=== PATIENT | female | born 1955 | race Caucasian/White ===

== ENCOUNTER 2019-05-31 01:44 | Day surgery (SDC) | payer MEDICARE, BC, SELFPAY ==
[2019-05-26 14:19] VITALS: BMI 27.7
[2019-05-31 09:18] VITALS: BP 114/79; PULSE 80; RESP 18; TEMP 37.5; O2SAT 100
[2019-05-31] MEDS: LACTATED RINGERS 1,000 ML 150 ML IV CONT (09:28)
--- NOTE | 2019-05-31 09:34 | WPDANESEPPF ---
Anes - Initial Pre Proc Eval Procedure: Operation Date: 05/31/19 10:30 Proposed Procedures p Esophagogastroduodenoscopy - Jeronimo Valdovinos MD Date/Time: 05/31/19 09:34 Surgeon: Jeronimo Valdovinos MD Pre Op Diagnosis: dysphagia Patient Data Age: 64 Gender: F Height: 5 ft Weight: 66 kg Last Vital Signs Temp 99.5 F 05/31/19 09:18 Pulse 80 05/31/19 09:18 Resp 18 05/31/19 09:18 BP 114/79 05/31/19 09:18 Pulse Ox 100 05/31/19 09:18 Allergies Allergy/AdvReac Type Severity Reaction Status Date / Time No Known Allergies Allergy Unverified 05/31/19 09:15 Home Medications Medication Instructions Recorded Confirmed Type No Home Medications 05/26/19 05/26/19 History Patient hx anesthesia problems: none Family hx anesthesia problems: none PMFSH Social History Social History Smoking status: Never smoker Alcohol intake: current Anes - Eval Final PreProcedure Day of Procedure 05/31/19 09:34 Patient weight: obese Heart: regular rate and rhythm Lungs: clear to auscultation Airway: Mallampati scale class II Neurological: alert and oriented Last oral intake: >/= 8 hours ASA classification: II Emergent: no Anesthetic plan: proceed Anesthesia type and monitoring: general GIVS and standard monitoring Informed Consent: The patient's anesthetic plan and its attendant risks and benefits were discussed with the patient/family/POA. Questions were solicited and answers provided to the satisfaction of the patient/family/POA.
--- NOTE | 2019-05-31 09:36 | PM.HPGS ---
History of Present Illness History of Present Illness Consent: Risks, benefits, and alternatives have been discussed and questions answered. Patient agrees to proceed with procedure. Chief complaint: dysphagia Narrative: Cordelia Bai is a 64 year old female with dysphagia. A few months ago she began to notice food getting caught in her upper chest when eating. To relieve that she would drink some water and after while it would finally pass. She denies chronic heartburn. She does have a strong family history of esophageal cancer and Valentin's esophagus. Her sister from cancer of the esophagus. [facility] [place] Social History Social History Smoking status: Never smoker Alcohol intake: current Meds Home Medications and Allergies Home Medications Medication Instructions Recorded Confirmed Type No Home Medications 05/26/19 05/26/19 History Allergies Allergy/AdvReac Type Severity Reaction Status Date / Time No Known Allergies Allergy Unverified 05/31/19 09:15 Vital Signs Vital Signs - 24 hr 05/31/19 09:18 Temperature 37.5 C Pulse Rate 80 Respiratory Rate 18 Blood Pressure 114/79 Pulse Oximetry 100 Exam Const: General: alert Orientation/consciousness: patient oriented x3 Resp: Auscultation: clear to auscultation bilaterally Cardio: Rhythm: regular rhythm GI: GI Palp: Yes Soft to palpation and No Tenderness to palpation present (GI) Neuro: General: patient oriented x3 Assessment and Plan Assessment and plan (1) Dysphagia: Code(s): R13.10 - Dysphagia, unspecified Status: Acute Assessment and Plan: EGD with possible biopsy or dilatation or cautery.
[2019-05-31 09:46] VITALS: BP 96/49; PULSE 78; RESP 18; O2SAT 98
[2019-05-31 09:56] VITALS: BP 92/53; PULSE 73; RESP 19; O2SAT 97
[2019-05-31 10:06] VITALS: BP 111/78; PULSE 69; RESP 18; O2SAT 98
[2019-05-31 10:16] VITALS: BP 108/80; PULSE 73; RESP 19; O2SAT 97
[2019-05-31 10:26] VITALS: BP 123/72; PULSE 71; RESP 18; O2SAT 99
== END 2019-05-31 10:44 | disposition home or self-care (01) ==
PROVIDERS: PCP Physician Assistant; Visit Provider Internal Medicine Gastroenterology
PROC: 0DJ08ZZ Inspection of Upper Intestinal Tract, Via Natural or Artificial Opening Endoscopic (ICD-10-PCS; CPT 43235; principal; 2019-05-31 10:30)
DX: K21.0 Gastro-esophageal reflux disease with esophagitis (principal); K22.10 Ulcer of esophagus without bleeding; K22.4 Dyskinesia of esophagus; E66.9 Obesity, unspecified; Z68.28 Body mass index [BMI] 28.0-28.9, adult
CPT/HCPCS: 43239; 87081; 88305; 88312; J2704; J7120

== ENCOUNTER 2019-11-06 14:27 | Outpatient (CLI) | payer MEDICARE, SELFPAY ==
[2019-11-13 14:19] LABS: Reference Lab Test Result Negative
== END 2019-11-06 14:28 | disposition home or self-care (01) ==
PROVIDERS: PCP Physician Assistant; Visit Provider Physician Assistant
DX: R09.89 Other specified symptoms and signs involving the circulatory and respiratory systems (principal); Z20.828 Contact with and (suspected) exposure to other viral communicable diseases
CPT/HCPCS: 36415; 86769

== ENCOUNTER 2020-06-26 09:34 | Observation (INO) | payer MEDICARE, SELFPAY ==
[2020-06-26] VITALS (23 sets, daily range): BP systolic 113–148; BP diastolic 58–101; PULSE 48–71; RESP 13–20; TEMP 36.6–36.7; O2SAT 96–100; BMI 25.2
--- NOTE | ~2020-06-26 | XR_ITS ---
EXAMINATION: XR chest 2V DATE: 06/26/2020 10:10 INDICATION: Midsternal chest pain. TECHNIQUE: Frontal and lateral views of the chest were obtained. COMPARISON: None. FINDINGS: The chest demonstrates clear lungs without pneumonia, pleural effusion, or pneumothorax. Th e heart size is normal. IMPRESSION: 1. No acute cardiopulmonary disease. Reviewed, dictated and finalized at location A.
--- NOTE | ~2020-06-26 | NM_ITS ---
EXAMINATION: NM fred stress w perfusion DATE: 06/27/2020 12:43 INDICATION: Chest pain. TECHNIQUE: Rest images were obtained following intravenous administration of 9.5 mCi Tc99m tetrofosmi n (Myoview). The patient was infused intravenously with Lexiscan (regadenoson). Then, 29.1 mCi Tc99m tetrofosmin (Myoview) was administered intravenously, and stress images were obtained. Data was recon structed into short axis and horizontal and vertical long axis SPECT images. Gated SPECT images were also obtained. COMPARISON: None. FINDINGS: There is no definite reversible or fixed perfusion abnormality to suggest ischemia or infar ction. There is no segmental wall motion abnormality. Left ventricular ejection fraction measures > 70%. IMPRESSION: 1. No definite ischemia or infarct. 2. Normal left ventricular ejection fraction measuring >70%. Reviewed, dictated and finalized at location A.
--- NOTE | 2020-06-26 09:44 | ECG_ITS ---
Measurements Intervals [place] Rate: 59 P: 11 CA: 132 QRS: -25 QRSD: 103 T: 9 QT: 415 QTc: 413 Interpretive Statements SINUS BRADYCARDIA DELAYED PRECORDIAL R/S TRANSITION BORDERLINE T WAVE ABNORMALITY- INFERIOR LEADS BASELINE WANDER- AVR, AVL, AVF BORDERLINE ECG Electronically Signed On 06-26-2020 10:55:42 CDT by Markie Rivera D.O.
[2020-06-26 09:55] LABS: Basophils Percent Auto 0.4 % (0.2-1.2); Eosinophils Absolute Auto 0.1 K/mm3 (0-0.3); Eosinophils Percent Auto 1.3 % (0-4.4); Hematocrit 46.6 % (37.0-47.0); Hemoglobin 15.3 g/dL (12.0-15.0); Immature Granulocyte Absolute 0.01 K/mm3 (0.00-0.031); Immature Granulocyte Percent A 0.2 % (0-0.5); Lymphocytes Absolute Auto 1.96 K/mm3 (0.9-3.2); Lymphocytes Percent Auto 42.6 % (18.3-44.2); Mean Corpuscular HGB Conc 32.8 g/dl (32-36); Mean Corpuscular Hemoglobin 29.6 pg (26-34); Mean Corpuscular Volume 90.1 fl (80-100); Monocytes Absolute Auto 0.2 K/mm3 (0.1-0.6); Monocytes Percent Auto 5.2 % (2.6-8.5); Neutrophils Absolute Auto 2.3 K/mm3 (1.3-6.7); Neutrophils Percent Auto 50.3 % (45.5-73.1); Platelet Count Result 237 k/mm3 (150-375); Red Blood Count 5.17 M/mm3 (4.2-5.4); Red Cell Distribution Width 12.3 % (11.5-14.5); White Blood Count 4.6 K/mm3 (4.5-10.0)
[2020-06-26] MEDS: ASPIRIN 81 MG CHEWABLE TABLET 324 MG PO (10:01)
[2020-06-26 10:05] LABS: Anion Gap 8 mmol/L (8-16); Blood Urea Nitrogen 20 mg/dL (7-17); Calcium 9.6 mg/dL (8.4-10.2); Carbon Dioxide 30 mmol/L (22-30); Chloride 105 mmol/L (98-107); Estimated CRCL calculation 39 ml/min; Estimated Glomerular Filt Rate > 60; Glucose 108 mg/dL (65-105); Potassium 4.2 mmol/L (3.4-5.0); Sodium 143 mmol/L (137-145)
[2020-06-26 10:07] LABS: INR 0.9; Prothrombin Time 12.4 Seconds (11.1-14.7)
[2020-06-26 10:08] LABS: Partial Thromboplastin Time 29.8 SECONDS (22.3-36.8)
--- NOTE | 2020-06-26 10:08 | ED.CHESTPAIN ---
HPI - Chest Pain General Chief Complaint: Chest Pain Stated Complaint: chest pain Time Seen by Provider: 06/26/20 09:37 History of Present Illness HPI narrative: Patient is a 65-year-old female who presents ER with chest pain. Began around 6 AM. Pressure left center of the chest. No radiation. Finds that she has exertional fatigue and shortness of breath with this chest pain. No previous history of coronary disease. She has a father who had cardiac issues in his late 50s and a brother who had an MN at age 62. Denies diaphoresis/nausea/vomiting. Has found no alleviating factors. Related Data Home Medications Medication Instructions Recorded Confirmed pantoprazole 40 mg PO DAILY 06/26/20 06/26/20 Allergies Allergy/AdvReac Type Severity Reaction Status Date / Time No Known Allergies Allergy Unverified 05/31/19 09:15 Review of Systems Review of Systems: All systems reviewed & are unremarkable except as noted in HPI and below Constitutional: Constitutional: Denies chills, Denies fever(s) and Denies weakness ENT: Denies nasal congestion and Denies sore throat Cardiovascular: Cardiovascular: Reports chest pain, Denies rapid heart rate and Denies radiating jaw, neck or arm pain Comments: Exertional shortness of breath/fatigue. Respiratory: Respiratory: Denies cough, Reports dyspnea and Denies wheezing Gastrointestinal: Gastrointestinal: Denies abdominal pain, Denies diarrhea, Denies nausea and Denies vomiting Genitourinary: Genitourinary: Denies dysuria and Denies flank pain PMFSH Past Medical History Medical History Healthy female adult Surgical History Surgical History H/O knee surgery H/O left wrist surgery History of appendectomy History of section History of partial hysterectomy Family History Family History Father Acute myocardial infarction Sibling Acute myocardial infarction Social History Social History Smoking status: Never smoker Alcohol intake: current Exam Narrative: Exam Narrative: GENERAL: Well-appearing, well-nourished, and in no acute distress. HEAD: Normocephalic, atraumatic. ENT: Mucous membranes moist. CHEST: Clear to auscultation. No respiratory distress. HEART: Regular rate and rhythm. Normal peripheral pulses. ABDOMEN: Soft, nontender, nondistended. EXTREMITIES: Normal range of motion. No edema. SKIN: Warm, dry, no rash. NEURO: Alert and oriented x3. PSYCH: Normal mood and affect. Course Course Emergency Course: Chest pain returned while talking to cardiology so patient sent to IMU. No stress test today. Patient seen in the ER by Dr. Nuno Reevaluation(s) Reevaluation #1: CP alleviated s/p nitro x 2. Will contact avionics systems engineer cardiology. Date: 06/26/20 Time: 10:45 Vital Signs Vital signs: Vital Signs Temperature 98.1 F 06/26/20 09:41 Pulse Rate 62 06/26/20 09:41 Respiratory Rate 14 06/26/20 09:41 Blood Pressure 123/70 06/26/20 09:41 Pulse Oximetry 99 06/26/20 09:41 Temperature 97.8 F 06/26/20 13:45 Pulse Rate 55 L 06/26/20 16:00 Respiratory Rate 14 06/26/20 16:00 Blood Pressure 113/62 06/26/20 16:00 Pulse Oximetry 99 06/26/20 16:00 MDM - Chest Pain Lab Data Result diagrams: 06/26/20 09:46 06/26/20 09:46 Labs: Lab Results 06/26/20 06/26/20 06/26/20 Range/Units 09:46 09:46 09:46 WBC 4.6 (4.5-10.0) K/mm3 RBC 5.17 (4.2-5.4) M/mm3 Hgb 15.3 H (12.0-15.0) g/dL Hct 46.6 (37.0-47.0) % MCV 90.1 (80-100) fl MCH 29.6 (26-34) pg MCHC 32.8 (32-36) g/dl RDW 12.3 (11.5-14.5) % Plt Count 237 (150-375) k/mm3 MPV 10.0 (7.4-10.4) fl Immature Gran % (Auto) 0.2 (0-0.5) % Neut % (Auto) 50.3 (45.5-73.1) % Lym
[2020-06-26] MEDS: NITROGLYCERIN SL 0.4 MG TABLET SUBLINGUAL (10:15)
[2020-06-26 10:17] LABS: Troponin I < 0.012 ng/mL (0.000-0.034)
--- NOTE | 2020-06-26 10:30 | PC.NURSE ---
After 2 administrations of 0.4 SL nitro q5 mins, patient chest pain went from a 5 to a 4 to a 0. ERP aware
--- NOTE | 2020-06-26 11:19 | EST_ITS ---
Patient Info Name: Cordelia Bai Age: 65 years : 1955 Gender: Female Ht: 60 in Wt: 129 lbs BSA: 1.59 m2 Heart Rhythm: Sinus Rhythm Exam Date: 06/27/2020 11:37 AM Exam Location: [facility] Stress Patient Status: Inpatient Admit Date: 06/26/2020 Staff Ordering Physician: Jorge Ortiz MD Attending Provider: Regan Nuno MD Exercise Technologist: Beverly Naranjo RDCS Exercise Physician: Regan Nuno MD Exam Type: CA stress fred w NM Study Info Indications R07.9 - Chest pain, unspecified A regadenoson stress test was performed. Summary 1. Nondiagnostic ECG changes which did not meet strict criteria for reversible myocardial ischemia with Lexiscan infusion. 2. No arrhythmias were observed during the examination. 3. Please correlate with nuclear medicine images, reported separately. Protocol: Lexiscan Stress ECG Details Stage: REST Duration (min): 5 min : 26 sec HR (bpm): 62 SBP (mmHg): 120 DBP (mmHg): 84 Stage: REST Duration (min): 13 min : 30 sec HR (bpm): 65 SBP (mmHg): 120 DBP (mmHg): 84 Stage: STAGE 1 Duration (min): 1 min : 0 sec HR (bpm): 114 SBP (mmHg): 117 DBP (mmHg): 87 Stage: RECOVERY Duration (min): 1 min : 0 sec HR (bpm): 115 SBP (mmHg): 117 DBP (mmHg): 87 Stage: RECOVERY Duration (min): 2 min : 0 sec HR (bpm): 100 SBP (mmHg): 117 DBP (mmHg): 87 Stage: RECOVERY Duration (min): 3 min : 0 sec HR (bpm): 100 SBP (mmHg): 135 DBP (mmHg): 85 Stage: RECOVERY Duration (min): 4 min : 0 sec HR (bpm): 95 SBP (mmHg): 135 DBP (mmHg): 85 Stage: RECOVERY Duration (min): 5 min : 0 sec HR (bpm): 93 SBP (mmHg): 118 DBP (mmHg): 85 Stage: RECOVERY Duration (min): 5 min : 54 sec HR (bpm): 88 SBP (mmHg): 118 DBP (mmHg): 85 Rest HR: 65 bpm Peak HR: 119 bpm Rest Sys BP: 120 mmHg Peak Sys BP: 135 mmHg Max Pred HR: 154 bpm % Max Pred HR: 77 % Target HR: 131 bpm Max RPP: 16,065 bpm*mmHg Termination Reason: Completed protocol Cardiac Symptoms: Chest pain, Shortness of breath Total Time: 1 min : 0 sec Rest Rendon BP: 84 mmHg Peak Rendon BP: 85 mmHg Total Dose: 0.4 mg Resting ECG Sinus bradycardia. Poor R-wave progression. Stress ECG Nondiagnostic ECG changes which did not meet strict criteria for reversible myocardial ischemia with Lexiscan infusion. Arrhythmias No arrhythmias were observed during the examination. Report Signatures
[2020-06-26 12:05] LABS: Cholesterol 210 mg/dL (0-200); HDL Direct 45 mg/dL; Triglycerides 189 mg/dL (<150)
[2020-06-26 12:16] LABS: LDL Cholesterol Direct 123 mg/dL
--- NOTE | 2020-06-26 13:22 | PM.IMHP ---
H&P: HPI History of Present Illness Date/Time: Date of service: 06/26/20 13:22 Cardiology short-stay H and P summary: Chief Complaint: Chest pain, fatigue Narrative: Patient is a very pleasant 65-year-old female with no significant past medical history presents to the emergency department complaints of persistent chest pressure fatigue. Patient states beginning last night she is feeling quite tired and went to bed at 7:00 p.m. which is unusual for her. She had no energy but denied chest pain or shortness of breath. She states she then awoke following morning with a heaviness in her chest central left location radiating to her left neck. Symptoms wax and wane in intensity and did not seem to worsen with activity but then began to feel worse with associated shortness of breath, nausea and as such presented to the ER. She was given 2 sublingual nitroglycerin with eventual resolution of her chest pain as reported by the emergency room physician. Upon my evaluation chest pain had recurred albeit to mild degree. Patient states she can just tell something is not right. She reports history of coronary artery disease in her father and brothers but admits she has been under a great deal of stress. She has not experienced symptoms similar to this in the past. EKG revealed no acute ischemic changes and initial troponin was negative. Plan was to admit her to the [facility] for Lexiscan nuclear stress test later this afternoon, however, given recurrence of chest pain and persistence this has been canceled with rationale explained. Patient states her symptoms are quite mild at this time and otherwise feels fair. Review of Systems Review of Systems: All systems reviewed & are unremarkable except as noted in HPI and below Constitutional: Constitutional: Reports as per HPI, Reports no additional constitutional complaints, Reports fatigue and Reports weakness Eyes: Eyes: Reports as per HPI and Reports no additional eye complaints ENT: Reports system reviewed and no additional complaints, except as documented and Reports as per HPI Cardiovascular: Cardiovascular: Reports as per HPI, Reports no additional cardiovascular complaints, Reports chest pain, Reports diaphoresis, Denies pedal edema, Denies leg edema, Denies lightheadedness and Denies palpitations Respiratory: Respiratory: Reports as per HPI, Reports no additional respiratory complaints, Denies cough, Denies hemoptysis, Reports dyspnea and Denies wheezing Gastrointestinal: Gastrointestinal: Reports as per HPI, Reports no additional gastrointestinal complaints, Denies abdominal pain, Denies melena, Denies hematochezia, Reports nausea and Denies vomiting Genitourinary: Genitourinary: Reports as per HPI, Denies hematuria and Denies dysuria Musculoskeletal: Musculoskeletal: Reports no additional musculoskeletal complaints, Reports as per HPI and Reports neck pain Integumentary/Breasts: Skin/Breast: Reports system reviewed and no additional complaints, except as docu and Reports as per HPI Neurologic: Reports system reviewed and no additional complaints, except as documented and Reports as per HPI Psychiatric: Psychiatric: Reports no additional psychiatric complaints, Reports as per HPI, Reports anxiety and Denies confusion Endocrine: Endocrine: Reports no additional endocrine complaints, Reports as per HPI and Reports fatigue Hematologic/Lymphatic: Hematologic/Lymphatic: Reports no additional hematologic/lymphatic complaints and Reports as per HPI Allergic/Immunologic: Allergic/Immunologic: Reports no additional allergic/immunologic complaints, Reports as per HPI and Denies GI upset with certain foods PMFSH Past Medical History Medical History Healthy female adult Surgical History Surgical History H/O knee surgery H/O left wrist surgery History of appendectomy History of katie
--- NOTE | 2020-06-26 13:30 | ADMGEN ---
This patient, Cordelia Bai, was admitted to IMU Room 205-01. Patient/family oriented to hospital policies and general routines including ID bracelet, bed and alarms, visiting hours, pain management, procedures, bathroom and other care routines, personal items, smoking policy, room service/diet, and visiting hours. Information on how to activate the Rapid Response Team has been discussed. Patient/Family are encouraged to report perceived risks to care and to ask questions if they do not understand what they are told or what they should do.
--- NOTE | 2020-06-26 13:35 | ECHO_ITS ---
Patient Info Name: Cordelia Bai Age: 65 years : 1955 Gender: Female Ht: 66 in Wt: 129 lbs BSA: 1.65 m2 HR: 78 bpm BP: 116 / 62 mmHg Heart Rhythm: Sinus Rhythm Technical Quality: Good Exam Date: 06/26/2020 3:53 PM Exam Location: [facility] Pulmonary Exam Room: [facility] Patient Status: Inpatient Admit Date: 06/26/2020 Staff Ordering Physician: Regan Nuno MD Lathe Operator Contact Lens: Jennifer Henry RDCS Attending Provider: Regan Nuno MD Exam Type: CA echo doppler color flow Study Info Complete two-dimensional, color flow and Doppler transthoracic echocardiogram is performed. Summary 1. Complete two-dimensional, color flow and Doppler transthoracic echocardiogram is performed. 2. Left ventricular systolic function is hyperdynamic, estimated at >70%. 3. There is mildly increased left ventricular wall thickness. 4. The left ventricular diastolic function is grade I diastolic dysfunction. 5. There is mild tricuspid valve regurgitation. 6. No pulmonary hypertension, estimated pulmonary arterial systolic pressure is 23 mmHg. 7. There is no aortic valve stenosis. Left Ventricle Left ventricular chamber dimension is normal. Left ventricular systolic function is hyperdynamic, estimated at >70%. There is mildly increased left ventricular wall thickness. The left ventricular diastolic function is grade I diastolic dysfunction. Right Ventricle Right ventricular chamber dimension is normal. Right ventricular systolic function is normal. Left Atria Left atrial chamber dimension is normal. Right Atria Right atrial chamber dimension is normal. Aortic Valve The aortic valve is trileaflet. There is mild aortic valve sclerosis. There is no aortic valve stenosis. There is no aortic valve regurgitation. Pulmonic Valve The pulmonic valve is normal. There is trace pulmonic regurgitation. Mitral Valve The mitral valve has normal leaflets. There is no mitral valve regurgitation. Tricuspid Valve The tricuspid valve leaflets are normal. There is mild tricuspid valve regurgitation. No pulmonary hypertension, estimated pulmonary arterial systolic pressure is 23 mmHg. Pericardium/Pleural The pericardium appears normal. There is trivial pericardial effusion. Inferior Vena Cava Normal inferior vena cava with >50% collapse upon inspiration consistent with normal right atrial pressure, 5 mmHg. Aorta The aortic root size at the sinus of Valsalva is normal. Left Ventricular Outflow Tract Name Value Normal LVOT 2D LVOT Diameter 2.0 cm LVOT Doppler LVOT Peak Gradient 6 mmHg LVOT Mean Gradient 3 mmHg LVOT VTI 29 cm LVOT VTI/AV VTI Ratio 1.0 LVOT Stroke Volume 88 ml LVOT CO 16.5 l/min LVOT CI 10.0 l/min/m2 Pulmonic Valve Name Value Normal
[2020-06-26 14:15] LABS: Cholesterol 146 mg/dL (0-200); HDL Direct 32 mg/dL
--- NOTE | 2020-06-26 14:18 | ECG_ITS ---
SINUS BRADYCARDIA DELAYED PRECORDIAL R/S TRANSITION LOW QRS VOLTAGE IN PRECORDIAL LEADS BORDERLINE T WAVE ABNORMALITY- INFERIOR LEADS BASELINE ARTIFACT- I, II, III, AVL BORDERLINE ECG Electronically Signed On 06-26-2020 14:16:40 CDT by Markie Rivera D.O. COMPARED TO ECG 06/26/2020 09:46:01 NO SIGNIFICANT CHANGES MTDD
[2020-06-26 14:21] LABS: Triglycerides 139 mg/dL (<150)
[2020-06-26 14:22] LABS: LDL Cholesterol Direct 91 mg/dL
[2020-06-26 14:37] LABS: Troponin I < 0.012 ng/mL (0.000-0.034)
[2020-06-26 15:17] LABS: Thyroid Stimulating Hormone Reflex 0.781 uIU/mL (0.465-4.68)
[2020-06-26] MEDS: NITROGLYCERIN OINTMENT 1 INCH DOSE TRANSDERM (15:19)
[2020-06-26 16:12] LABS: Troponin I < 0.012 ng/mL (0.000-0.034)
--- NOTE | 2020-06-26 17:18 | ECG_ITS ---
Measurements Intervals [place] Rate: 58 P: 12 UT: 133 QRS: -25 QRSD: 86 T 6 QT: 356 QTc: 352 Interpretive Statements SINUS BRADYCARDIA RSR' IN V1 OR V2, CONSIDER RIGHT VENTRICULAR HYPERTROPHY OR RIGHT VCD DELAYED PRECORDIAL R/S TRANSITION NONSPECIFIC T-WAVE ABNORMALITY- INFERIOR LEADS BORDERLINE ECG Electronically Signed On 06-27-2020 9:12:23 CDT by Markie Rivera D.O. COMPARED TO ECG 06/26/2020 13:58:36 NO SIGNIFICANT CHANGES MTDD
[2020-06-26] MEDS: ACETAMINOPHEN 325 MG TABLET 650 MG PO (19:07)
[2020-06-27] VITALS (8 sets, daily range): BP systolic 106–124; BP diastolic 57–78; PULSE 54–80; RESP 14–20; TEMP 36.1–36.4; O2SAT 97–100
[2020-06-27 05:25] LABS: Anion Gap 5 mmol/L (8-16); Blood Urea Nitrogen 17 mg/dL (7-17); Carbon Dioxide 29 mmol/L (22-30); Chloride 105 mmol/L (98-107); Estimated CRCL calculation 43 ml/min; Estimated Glomerular Filt Rate > 60; Glucose 93 mg/dL (65-105); Potassium 4.5 mmol/L (3.4-5.0); Sodium 139 mmol/L (137-145)
[2020-06-27 05:29] LABS: Hematocrit 40.6 % (37.0-47.0); Hemoglobin 13.4 g/dL (12.0-15.0); Mean Corpuscular Hemoglobin 29.6 pg (26-34); Mean Corpuscular Volume 89.8 fl (80-100); Mean Platelet Volume 10.4 fl (7.4-10.4); Platelet Count Result 224 k/mm3 (150-375); Red Blood Count 4.52 M/mm3 (4.2-5.4); Red Cell Distribution Width 12.4 % (11.5-14.5); White Blood Count 4.3 K/mm3 (4.5-10.0)
--- NOTE | 2020-06-27 07:00 | ECG_ITS ---
Measurements Intervals [place] Rate: 59 P: 19 HI: 130 QRS: -24 QRSD: 94 T: 14 QT: 432 QTc: 429 Interpretive Statements SINUS BRADYCARDIA VOLTAGE CRITERIA FOR LVH BORDERLINE T WAVE ABNORMALITY- INFERIOR LEADS BASELINE ARTIFACT- V4 BORDERLINE ECG Electronically Signed On 06-27-2020 10:01:52 CDT by Markie Rivera D.O.
--- NOTE | 2020-06-27 08:35 | PC.NURSE ---
DR. AGUILA HERE TO SEE PT.
--- NOTE | 2020-06-27 09:14 | PC.NURSE ---
EKG IN PROGRESS.
--- NOTE | 2020-06-27 10:19 | PC.NURSE ---
PT. HAS REFUSED ATORVASTATIN DOSE. WOULD LIKE TO TALK TO DR. AGUILA ABOUT MED NEED BEFORE TAKING AT THIS TIME. WILL HOLD LOVENOX DOSE THIS AM; DUE FOR STRESS TEST.
[2020-06-27 10:23] LABS: Troponin I < 0.012 ng/mL (0.000-0.034)
--- NOTE | 2020-06-27 10:40 | PC.NURSE ---
DOWN VIA WC FOR STRESS TEST. LATEST TROP RESULT NEG.
--- NOTE | 2020-06-27 11:28 | PM.PNCARD ---
Progress Note: A&P Assessment and Plan (1) Unstable angina: Code(s): I20.0 - Unstable angina Status: Acute Assessment and Plan: Chest pain persistent well over 24 hours with no ischemic EKG changes, negative serial troponins and again this morning, 2D echocardiogram while having chest pain without associated wall motion abnormalities which fairly strongly argue against true unstable angina. Nonetheless, we discussed at length invasive versus noninvasive workup. Discussed with Dr. Frederick interventional cardiology who did not feel coronary angiography warranted at this time and recommended continuing with noninvasive Lexiscan nuclear stress test. Discussed with at length, risks, benefits, alternatives and limitations with noninvasive imaging. All questions answered to her satisfaction. Patient verbalized understanding and agrees to proceed with stress test. Further recommendations to follow after review noninvasive ischemic evaluation. If negative without high risk or concerning features will add PPI and consider discharge home later today to follow up with primary care physician as an outpatient. Patient is in agreement with this plan of care. Stress coping strategies advised. Further recommendations to follow. Subjective Date/time seen: Date of service: 06/27/20 11:28 Follow-up for chest pain Patient with continuous chest pain without significant relief with nitroglycerin. Nitroglycerin paste result in significant headache which was discontinued. 2D echocardiogram revealed no wall motion abnormalities while she is having chest pain, repeat troponins serially negative, no acute ischemic changes I EKG despite consistent chest pain for well over 24 hours. Patient otherwise has no other new complaints. Stable on telemetry overnight. No other new concerns. Ambulate to the bathroom without escalation in symptoms. She feels perhaps stress or anxiety is her primary problem. Patient is NPO. Review of Systems Review of Systems: All systems reviewed & are unremarkable except as noted in HPI and below Constitutional: Constitutional: Reports as per HPI, Reports no additional constitutional complaints and Reports fatigue Eyes: Eyes: Reports as per HPI and Reports no additional eye complaints ENT: Reports system reviewed and no additional complaints, except as documented, Reports as per HPI and Reports neck pain Cardiovascular: Cardiovascular: Reports as per HPI, Reports no additional cardiovascular complaints, Reports chest pain, Denies diaphoresis, Denies pedal edema, Denies leg edema, Denies lightheadedness, Denies palpitations and Reports dyspnea Respiratory: Respiratory: Reports as per HPI, Reports no additional respiratory complaints, Denies cough, Denies hemoptysis, Denies dyspnea and Denies wheezing Gastrointestinal: Gastrointestinal: Reports as per HPI, Reports no additional gastrointestinal complaints, Denies abdominal pain, Denies melena, Denies hematochezia, Denies nausea and Denies vomiting Genitourinary: Genitourinary: Reports as per HPI, Denies hematuria and Denies dysuria Musculoskeletal: Musculoskeletal: Reports no additional musculoskeletal complaints, Reports as per HPI and Denies neck pain Integumentary/Breasts: Skin/Breast: Reports system reviewed and no additional complaints, except as docu and Reports as per HPI Neurologic: Reports system reviewed and no additional complaints, except as documented, Reports as per HPI, Denies confusion and Reports weakness Psychiatric: Psychiatric: Reports no additional psychiatric complaints, Reports as per HPI, Reports anxiety, Denies confusion and Reports depression Endocrine: Endocrine: Reports no additional endocrine complaints, Reports as per HPI, Reports fatigue and Denies palpitations Hematologic/Lymphatic: Hematologic/Lymphatic: Reports no additional hematologic/lymphatic complaints and Reports as per HPI Allergic/Immunologic: Allergic/Immunologic: Reports no addit
--- NOTE | 2020-06-27 12:30 | PC.NURSE ---
RETURNS TO ROOM VIA S/P STRESS TEST.
--- NOTE | 2020-06-27 13:32 | PC.NURSE ---
RESULTS OF STRESS TEST CALLED TO DR. AGUILA.
--- NOTE | 2020-06-27 14:22 | PM.DS ---
DS: Admitting Diagnosis Admitting Diagnosis Admitting Diagnosis: Chest pain DS: Discharge Diagnosis Discharge Diagnosis (1) Unstable angina: Code(s): I20.0 - Unstable angina Status: Acute Assessment and Plan: Chest pain persistent well over 24 hours with no ischemic EKG changes, negative serial troponins and again this morning, 2D echocardiogram while having chest pain without associated wall motion abnormalities which fairly strongly argue against true unstable angina. Nonetheless, we discussed at length invasive versus noninvasive workup. Discussed with Dr. Frederick interventional cardiology who did not feel coronary angiography warranted at this time and recommended continuing with noninvasive Lexiscan nuclear stress test. Discussed with at length, risks, benefits, alternatives and limitations with noninvasive imaging. All questions answered to her satisfaction. Patient verbalized understanding and agrees to proceed with stress test. Further recommendations to follow after review noninvasive ischemic evaluation. If negative without high risk or concerning features will add PPI and consider discharge home later today to follow up with primary care physician as an outpatient. Patient is in agreement with this plan of care. Stress coping strategies advised. Lexiscan nuclear stress test negative for ischemia by EKG and perfusion imaging with no fixed or reversible defects, EF greater than 70%. Patient verbalized understanding and agrees to follow up with primary care physician as an outpatient. Continue omeprazole 40 mg daily. Stress coping mechanism discussed. DS: Summary Hospital Course Reason for hospitalization: Chest pain Hospital Course: patient was admitted to the emergency department persistent chest pain initially concern for unstable angina. Chest pain was constant, no exacerbation with activity, no EKG changes, wall motion abnormalities by echocardiogram and ruled out for fixed or reversible defects on Lexiscan nuclear stress test. As such, etiology of chest pain thought to be most likely stress induced versus GI related. Continue omeprazole, follow-up with PCP as an outpatient within 1 week for further workup and management for stress/anxiety. patient was then discharged home in stable and improved condition although with minimal residual chest pain she will was quite comfortable and strongly desired to be discharged home for outpatient follow-up. She has significant stressors caring for her elderly mother at home recently finding out that her sister who she had planned to come and help was not going to be of any assistance. This created a severe and undue hardship for her which she feels is the explanation for her chest pain. Given the lack of any demonstrable objective evidence for myocardial ischemia and/or infarction this is a more likely explanation. Status at Discharge Cognitive/behavioral status at discharge: Competent Functional status at discharge: independent ambulation Overall status at discharge: patient is progressing back to baseline Time Spent with Patient Time attestation: Total time spent providing and/or coordinating discharge services: 34 minutes Time spent: Greater than 30 minutes Exam Narrative: Exam Narrative: General: Very pleasant female appearing slightly fatigued otherwise Well developed, alert and oriented x3. No apparent distress pleasant, and cooperative. Head: atraumatic, normocephalic Eyes: EOM intact, sclerae anicteric, conjunctivae unremarkable Ears/Nose: external inspection of ears and nose were grossly normal Mouth/Throat: oral mucosa pink and moist Neck: supple, normal range of motion, no jugular venous distention or carotid bruits, thyroid nonpalpable, trachea midline. Cardiac: Bradycardic, Regular rhythm, normal S1-S2, no murmurs, clicks, gallops, or rubs. Lungs: Clear to auscultation bilaterally, no rales, wheezes, or rhonchi. Abdome
== END 2020-06-27 15:01 | disposition home or self-care (01) ==
LOC: ANHED 10:08 → ANHIMU 12:11
PROVIDERS: Admitting Provider Internal Medicine Cardiovascular Disease; Emergency Provider Emergency Medicine; PCP Physician Assistant; Visit Provider Internal Medicine Cardiovascular Disease
DX: R07.9 Chest pain, unspecified (principal); R53.83 Other fatigue
CPT/HCPCS: 36415; 71046; 78452; 80048; 80061; 84443; 84484; 85025; 85027; 85610; 85730; 93005; 93017; 93306; 99285; A9270; A9502; G0378; J2785

== ENCOUNTER → 2020-08-12 16:44 | Outpatient (REF) | payer MEDICARE, SELFPAY | LOC: ANHLAB 16:44 | PROVIDERS: PCP Physician Assistant; Visit Provider Nurse Practitioner | DX: D49.2 Neoplasm of unspecified behavior of bone, soft tissue, and skin (principal) | CPT/HCPCS: 88305 ==

== ENCOUNTER → 2020-09-02 07:17 | Outpatient (REF) | payer MEDICARE, SELFPAY | LOC: ANHLAB 07:17 | PROVIDERS: PCP Physician Assistant; Visit Provider Nurse Practitioner | DX: L57.0 Actinic keratosis (principal) | CPT/HCPCS: 88305; 88331 ==

== ENCOUNTER → 2020-09-14 01:28 | Outpatient (CLI) | payer MEDICARE, SELFPAY ==
[2020-09-14 19:37] LABS: SARS-CoV-2 RNA PCR Negative
== END ==
PROVIDERS: PCP Physician Assistant; Visit Provider Internal Medicine Gastroenterology
DX: Z01.812 Encounter for preprocedural laboratory examination (principal); Z20.822 Contact with and (suspected) exposure to COVID-19
CPT/HCPCS: C9803; U0003; U0005

== ENCOUNTER 2020-09-18 01:45 | Day surgery (SDC) | payer MEDICARE, SELFPAY ==
[2020-09-11 12:52] VITALS: BMI 28.0
[2020-09-18] MEDS: LACTATED RINGERS 1,000 ML 150 ML IV CONT (06:56)
[2020-09-18 06:58] VITALS: BP 134/76; PULSE 64; RESP 16; TEMP 36.3; O2SAT 100; BMI 29.0
--- NOTE | 2020-09-18 06:58 | PM.HPGS ---
History of Present Illness History of Present Illness Consent: Risks, benefits, and alternatives have been discussed and questions answered. Patient agrees to proceed with procedure. Chief complaint: gerd, esophagitis Narrative: Cordelia Dillard is a 65 year old female With a very strong family history of Valentin's esophagus. Her mother in fact from cancer of the esophagus at age 51. The patient had an EGD over a year ago that revealed ulcerative esophagitis. It was too severely inflamed for the pathologist to rule out Valentin's mucosa. She is taking pantoprazole daily now Review of Systems Review of Systems: All systems reviewed & are unremarkable except as noted in HPI and below PMFSH Past Medical History Medical History Healthy female adult Surgical History Surgical History H/O knee surgery H/O left wrist surgery History of appendectomy History of section History of partial hysterectomy Family History Family History Father Acute myocardial infarction Sibling Acute myocardial infarction Social History Social History Smoking status: Never smoker Alcohol intake: current Alcohol use details: socially Living arrangements: with family Spiritual care concerns: No Meds Home Medications and Allergies Home Medications Medication Instructions Recorded Confirmed Type pantoprazole 40 mg tablet,delayed 40 mg PO QAM 07/10/20 09/18/20 History release valacyclovir 1 gram tablet 1,000 mg PO DAILY 07/10/20 09/18/20 History Allergies Allergy/AdvReac Type Severity Reaction Status Date / Time No Known Allergies Allergy Verified 09/18/20 06:47 Exam Const: General: alert Orientation/consciousness: patient oriented x3 Resp: Auscultation: clear to auscultation bilaterally Cardio: Rhythm: regular rhythm GI: GI Palp: Yes Soft to palpation and No Tenderness to palpation present (GI) Neuro: General: patient oriented x3 Assessment and Plan Assessment and plan (1) GERD (gastroesophageal reflux disease): Code(s): K21.9 - Gastro-esophageal reflux disease without esophagitis Status: Acute Assessment and Plan: EGD with possible biopsy or dilatation or cautery.
--- NOTE | 2020-09-18 07:48 | WPDANESEPPF ---
Anes - Initial Pre Proc Eval Procedure: Operation Date: 09/18/20 08:00 Proposed Procedures p Esophagogastroduodenoscopy - Jeronimo Valdovinos MD Date/Time: 09/18/20 07:48 Surgeon: Jeronimo Valdovinos MD Pre Op Diagnosis: gerd, esophagitis Patient Data Age: 65 Gender: F Height: 5 ft Weight: 67.4 kg Last Vital Signs Temp 97.4 F L 09/18/20 06:58 Pulse 64 09/18/20 06:58 Resp 16 09/18/20 06:58 BP 134/76 09/18/20 06:58 Pulse Ox 100 09/18/20 06:58 Allergies Allergy/AdvReac Type Severity Reaction Status Date / Time No Known Allergies Allergy Verified 09/18/20 06:47 Home Medications Medication Instructions Recorded Confirmed Type pantoprazole 40 mg tablet,delayed 40 mg PO QAM 07/10/20 09/18/20 History release valacyclovir 1 gram tablet 1,000 mg PO DAILY 07/10/20 09/18/20 History Patient hx anesthesia problems: none Family hx anesthesia problems: none PMFSH Past Medical History Medical History Healthy female adult Surgical History Surgical History H/O knee surgery H/O left wrist surgery History of appendectomy History of section History of partial hysterectomy Family History Family History Father Acute myocardial infarction Sibling Acute myocardial infarction Social History Social History Smoking status: Never smoker Alcohol intake: current Alcohol use details: socially Living arrangements: with family Spiritual care concerns: No Anes - Eval Final PreProcedure Day of Procedure 09/18/20 07:48 Patient weight: overweight Heart: regular rate and rhythm Lungs: clear to auscultation Airway: Mallampati scale class II Neurological: alert and oriented Last oral intake: >/= 8 hours ASA classification: II Emergent: no Anesthetic plan: proceed Anesthesia type and monitoring: general GIVS and standard monitoring Informed Consent: The patient's anesthetic plan and its attendant risks and benefits were discussed with the patient/family/POA. Questions were solicited and answers provided to the satisfaction of the patient/family/POA.
[2020-09-18 08:10] VITALS: BP 123/77; PULSE 59; RESP 13; O2SAT 100
[2020-09-18 08:20] VITALS: BP 126/91; PULSE 61; RESP 16; O2SAT 100
[2020-09-18 08:30] VITALS: BP 132/85; PULSE 55; RESP 16; O2SAT 100
== END 2020-09-18 08:45 | disposition home or self-care (01) ==
PROVIDERS: PCP Physician Assistant; Visit Provider Internal Medicine Gastroenterology
PROC: 0DJ08ZZ Inspection of Upper Intestinal Tract, Via Natural or Artificial Opening Endoscopic (ICD-10-PCS; CPT 43235; principal; 2020-09-18 08:00)
DX: K21.00 Gastro-esophageal reflux disease with esophagitis, without bleeding (principal); K22.70 Barrett's esophagus without dysplasia
CPT/HCPCS: 43239; 88305; C9803; J2704; J7120; U0003; U0005

== ENCOUNTER 2020-12-05 01:07 | Day surgery (SDC) | payer MEDICARE, SELFPAY ==
[2020-11-26 12:51] VITALS: BMI 28.0
[2020-12-05 11:04] VITALS: BP 130/82; PULSE 70; TEMP 36.2; O2SAT 100
[2020-12-05] MEDS: LACTATED RINGERS 1,000 ML 150 ML IV CONT (11:11)
--- NOTE | 2020-12-05 11:45 | PM.HPGS ---
History of Present Illness History of Present Illness Consent: Risks, benefits, and alternatives have been discussed and questions answered. Patient agrees to proceed with procedure. Chief complaint: neoplasm screening Narrative: Cordelia Dillard is a 65 year old female referred for colon cancer screening. She is also troubled by severe pain on the left side of her abdomen that seems to go up and down from the lower quadrant to the subcostal area. This pain is continuous. She had a CT scan was unremarkable, and has seen a surgeon and tracer lathe set up operator and those exams were unremarkable. The pain is aggravated by getting up from a lying or sitting position and also much worse going up and downstairs. She has a history of having had 4 exploratories to remove adhesions from [id number]. Review of Systems Review of Systems: All systems reviewed & are unremarkable except as noted in HPI and below PMFSH Past Medical History Medical History Healthy female adult Surgical History Surgical History H/O knee surgery L 2013 & R 2017 H/O left wrist surgery L 2019 History of appendectomy 1963 History of section 1979, 1981, 1987 History of partial hysterectomy 2006 Hx of laparoscopy 1996, 1999, 2002, 2005 Family History Family History Father Acute myocardial infarction Sibling Acute myocardial infarction Esophageal cancer Ovarian cancer Other Diabetes mellitus Squamous cell carcinoma Social History Social History Smoking status: Never smoker Tobacco type: cigarettes Alcohol intake: current Alcohol use details: socially Living arrangements: with family Additional occupation/education comments: Self employed Spiritual care concerns: No Meds Home Medications and Allergies Home Medications Medication Instructions Recorded Confirmed Type pantoprazole 40 mg tablet,delayed 40 mg PO QAM 07/10/20 11/26/20 History release valacyclovir 1 gram tablet 1,000 mg PO DAILY PRN 07/10/20 11/26/20 History Allergies Allergy/AdvReac Type Severity Reaction Status Date / Time No Known Allergies Allergy Verified 11/26/20 12:50 Vital Signs Vital Signs - 24 hr 12/05/20 11:04 Temperature 36.2 C L Pulse Rate 70 Blood Pressure 130/82 Pulse Oximetry 100 Exam Const: General: uncomfortable Nutritional Appearance: average body habitus GI: Inspection: scar ( vertical midline scar from multiple operations) GI Palp: Yes abdominal tenderness ( Left upper quadrant), Yes Guarding due to palpation present (GI) ( slight, in left upper quadrant) and Yes No hepatosplenomegaly present Auscultation: normal bowel sounds Assessment and Plan Assessment and plan (1) Colon cancer screening: Code(s): Z12.11 - Encounter for screening for malignant neoplasm of colon Status: Acute Assessment and Plan: Colonoscopy with possible biopsy or polypectomy or cautery or injection of substances.
--- NOTE | 2020-12-05 11:47 | WPDANESEPPF ---
Anes - Initial Pre Proc Eval Procedure: Operation Date: 12/05/20 12:00 Proposed Procedures p Screening Colonoscopy - Jeronimo Valdovinos MD Date/Time: 12/05/20 11:47 Surgeon: Jeronimo Valdovinos MD Pre Op Diagnosis: neoplasm screening Patient Data Age: 65 Gender: F Height: 1.52 m Weight: 64.3 kg Last Vital Signs Temp 97.1 F L 12/05/20 11:04 Pulse 70 12/05/20 11:04 BP 130/82 12/05/20 11:04 Pulse Ox 100 12/05/20 11:04 Allergies Allergy/AdvReac Type Severity Reaction Status Date / Time No Known Allergies Allergy Verified 11/26/20 12:50 Home Medications Medication Instructions Recorded Confirmed Type pantoprazole 40 mg tablet,delayed 40 mg PO QAM 07/10/20 11/26/20 History release valacyclovir 1 gram tablet 1,000 mg PO DAILY PRN 07/10/20 11/26/20 History Patient hx anesthesia problems: none Family hx anesthesia problems: none PMFSH Past Medical History Medical History Healthy female adult Surgical History Surgical History H/O knee surgery L 2014 & R 2017 H/O left wrist surgery L 2019 History of appendectomy 1963 History of section 1979, 1981, 1987 History of partial hysterectomy 2006 Hx of laparoscopy 1996, 1999, 2002, 2006 Family History Family History Father Acute myocardial infarction Sibling Acute myocardial infarction Esophageal cancer Ovarian cancer Other Diabetes mellitus Squamous cell carcinoma Social History Social History Smoking status: Never smoker Tobacco type: cigarettes Alcohol intake: current Alcohol use details: socially Living arrangements: with family Additional occupation/education comments: Self employed Spiritual care concerns: No Anes - Eval Final PreProcedure Day of Procedure 12/05/20 11:47 Patient weight: overweight Heart: regular rate and rhythm Lungs: clear to auscultation Airway: Mallampati scale class II Neurological: alert and oriented Last oral intake: >/= 8 hours ASA classification: II Emergent: no Anesthetic plan: proceed Anesthesia type and monitoring: general GIVS and standard monitoring Informed Consent: The patient's anesthetic plan and its attendant risks and benefits were discussed with the patient/family/POA. Questions were solicited and answers provided to the satisfaction of the patient/family/POA.
[2020-12-05 12:56] VITALS: BP 111/66; PULSE 63; RESP 16; O2SAT 100
[2020-12-05 13:06] VITALS: BP 100/67; PULSE 68; RESP 18; O2SAT 100
[2020-12-05 13:16] VITALS: BP 117/79; PULSE 55; RESP 16; O2SAT 98
== END 2020-12-05 13:31 | disposition home or self-care (01) ==
PROVIDERS: PCP Physician Assistant; Visit Provider Internal Medicine Gastroenterology
PROC: 0DJD8ZZ Inspection of Lower Intestinal Tract, Via Natural or Artificial Opening Endoscopic (ICD-10-PCS; CPT 45378; principal; 2020-12-05 12:00)
DX: Z12.11 Encounter for screening for malignant neoplasm of colon (principal); D12.5 Benign neoplasm of sigmoid colon; K57.30 Diverticulosis of large intestine without perforation or abscess without bleeding; R10.32 Left lower quadrant pain
CPT/HCPCS: 45385; 88305; J2001; J2704; J7120

== ENCOUNTER 2022-02-16 20:48 | Emergency (ER) | payer MEDICARE, SELFPAY ==
--- NOTE | ~2022-02-16 | CT_ITS ---
EXAMINATION: CT brain wo con INDICATION: Headache COMPARISON: None TECHNIQUE: Standard unenhanced head CT. The dose-length product (DLP) was 605.33 mGy-cm. The mA was a djusted according to patient size. Iterative reconstruction technique was employed. FINDINGS: There is no intracranial hemorrhage, acute infarction, or abnormal mass lesion. A subtle ar ea of low-attenuation is seen in the left frontal butterfield radiata, likely related to prior infarct. Th e ventricles are normal. There is no abnormal mass effect or midline shift. The zelaya-white matter dif ferentiation is normal. The basal cisterns are patent. The orbits are normal. The paranasal sinuses, mastoids and calvarium are normal. IMPRESSION: 1. No acute intracranial abnormality. 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 Reviewed, dictated and finalized at location B. RVISOR BODY ASSEMBLY IMPRESSION: 1. No acute intracranial abnormality. 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
[2022-02-16 20:50] VITALS: BP 151/83; PULSE 61; RESP 20; TEMP 37; O2SAT 100
--- NOTE | 2022-02-16 22:58 | ED.GENADULT ---
HPI - General Adult General Chief complaint: Headache <SANDY Gonzalez Last Filed: 02/17/22 02:04> Stated complaint: headache <SANDY Gonzalez Last Filed: 02/17/22 02:04> Time Seen by Provider: 02/16/22 22:49 <SANDY Gonzalez Last Filed: 02/17/22 02:04> History of Present Illness HPI narrative: Patient is a 66-year-old female here for evaluation of a headache x 2 hours. Patient states that she was at rest when she suddenly developed a severe headache on the right side of her head that is throbbing and pulsatile in nature. Radiates into her ear. Has not taken any medicine for her pain. Additionally notes nausea but no vomiting. No visual changes, redness in the eye, drainage from the ear, sinus congestion, dizziness, weakness, recent head trauma, neck stiffness or fevers. Denies history of previous similar headache. No recent head trauma. <SANDY Gonzalez Last Filed: 02/17/22 02:04> Related Data Home medications: Home Medications Medication Instructions Recorded Confirmed pantoprazole 40 mg tablet,delayed 40 mg PO QAM 07/10/20 11/24/21 release escitalopram oxalate 5 mg tablet 5 mg PO DAILY 01/16/21 <SANDY Gonzalez Last Filed: 02/17/22 02:04> Allergies/adverse reactions: Allergies Allergy/AdvReac Type Severity Reaction Status Date / Time No Known Allergies Allergy Verified 11/24/21 08:03 <SANDY Gonzalez Last Filed: 02/17/22 02:04> Review of Systems Review of Systems: Gen.: Denies fevers or chills Eyes: Denies eye pain or visual change ENT: Denies congestion Respiratory: Denies shortness of breath or cough CV: Denies chest pain or palpitations GI: Denies abdominal pain nausea, emesis or diarrhea denies burning, urgency, frequency or hematuria Musculoskeletal: Denies back pain or muscle pain Neuro: Reports headache. Denies numbness, tingling, weakness or focal weakness Skin: Denies rash Except as documented, all other systems reviewed and negative <Cynthia Grubbs PA-C - Last Filed: 02/17/22 02:04> [facility] Past Medical History Medical History: Medical History Healthy female adult History of SCC (squamous cell carcinoma) of skin (10/10/13) removed from Left lower leg Screening mammogram, encounter for Squamous cell carcinoma of skin of chest (07/12/20) excision pf Basal Cell Carcinoma from chest <Cynthia Grubbs PA-C - Last Filed: 02/17/22 02:04> Surgical History Surgical History: Surgical History H/O knee surgery L 2014 & R 2017 H/O left wrist surgery L 2019 History of appendectomy 1963 History of section 1979, 1981, 1987 History of colposcopy (01/11/20) Lgsil History of partial hysterectomy 2006 SUPRACX HYSTERECTOMY Hx of laparoscopy 1996, 1999, 2002, 2005 <Cynthia Grubbs PA-C - Last Filed: 02/17/22 02:04> Family History Family History: Family History Father Acute myocardial infarction Sibling Acute myocardial infarction Esophageal cancer Ovarian cancer Other Diabetes mellitus Squamous cell carcinoma <Cynthia Grubbs PA-C - Last Filed: 02/17/22 02:04> Social History Social History: Social History (Updated 11/24/21 @ 08:05 by MYCHAL Portillo) Smoking status: Former smoker Tobacco type: cigarettes Alcohol intake: current Alcohol use details: socially Substance use: never Substance use type: does not use Additional living arrangements comments: Additional occupation/education comments: Self employed Gender identity (if verbalized by the patient): Female Sexual Orientation (if Verbalized by the Patient): Straight or Heterosexual Spiritual care concerns: No <Cynthia Jo
[2022-02-17 00:29] LABS: Basophils Percent Auto 0.5 % (0.2-1.2); Eosinophils Absolute Auto 0.2 K/mm3 (0-0.3); Eosinophils Percent Auto 2.7 % (0-4.4); Hematocrit 38.4 % (37.0-47.0); Immature Granulocyte Absolute 0.01 K/mm3 (0.00-0.031); Immature Granulocyte Percent A 0.2 % (0-0.5); Lymphocytes Absolute Auto 2.41 K/mm3 (0.9-3.2); Lymphocytes Percent Auto 38.9 % (18.3-44.2); Mean Corpuscular HGB Conc 33.9 g/dl (32-36); Mean Corpuscular Volume 88.5 fl (80-100); Mean Platelet Volume 9.7 fl (7.4-10.4); Monocytes Absolute Auto 0.4 K/mm3 (0.1-0.6); Monocytes Percent Auto 5.6 % (2.6-8.5); Neutrophils Absolute Auto 3.2 K/mm3 (1.3-6.7); Neutrophils Percent Auto 52.1 % (45.5-73.1); Platelet Count Result 236 k/mm3 (150-375); Red Blood Count 4.34 M/mm3 (4.2-5.4); Red Cell Distribution Width 12.6 % (11.5-14.5); White Blood Count 6.2 K/mm3 (4.5-10.0)
[2022-02-17 00:39] LABS: Alanine Aminotransferase 48 U/L (6-35); Albumin Level 4.5 g/dL (3.5-5.1); Alkaline Phosphatase 71 U/L (38-126); Anion Gap 11 mmol/L (8-16); Aspartate Amino Transferase 41 U/L (14-36); Bilirubin,Total 1.1 mg/dL (0.2-1.3); Blood Urea Nitrogen 15 mg/dL (7-17); Calcium 9.2 mg/dL (8.4-10.2); Carbon Dioxide 24 mmol/L (22-30); Chloride 102 mmol/L (98-107); Estimated CRCL calculation 57 ml/min; Estimated Glomerular Filt Rate > 60; Glucose 103 mg/dL (65-110); Potassium 3.7 mmol/L (3.4-5.0); Sodium 137 mmol/L (137-145)
[2022-02-17 00:57] LABS: Erythrocyte Sedimentation Rate 20 mm/hr (0-20)
== END 2022-02-17 01:41 | disposition home or self-care (01) ==
PROVIDERS: Physician Assistant; Emergency Provider Emergency Medicine; PCP Physician Assistant
DX: H66.91 Otitis media, unspecified, right ear (principal); Z85.828 Personal history of other malignant neoplasm of skin; Z90.711 Acquired absence of uterus with remaining cervical stump
CPT/HCPCS: 36415; 70450; 80053; 85025; 85652; 96365; 99284; J0131

== ENCOUNTER 2022-03-08 07:14 | Outpatient (CLI) | payer MEDICARE, SELFPAY ==
--- NOTE | ~2022-03-08 | MR_ITS ---
EXAMINATION: MR brain/brain stem wo/w con DATE: 03/08/2022 08:32 INDICATION: Abnormal head CT. Headache. TECHNIQUE: Magnetic resonance imaging (MRI) of the brain and brainstem was performed without and with 13 mL MultiHance intravenous contrast. 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 There are scattered areas of nonspecific increased T2-weighted signal intensity in the cerebral white matter. There is no intracranial hemorrhage, acute infarction, or abnormal intracranial mass lesion. The ventricles are normal in size. There is mild mucosal thickening in the ethmoid sinuses. The orbits are normal. The m astoid air cells are normal. IMPRESSION: 1. Mild nonspecific cerebral white matter disease, which likely represents chronic small vessel ische sydni disease. Reviewed, dictated and finalized at location A. F PROJECTIONIST IMPRESSION: 1. Mild nonspecific cerebral white matter disease, which likely represents online marketing analyst shahab small vessel ischemic disease.
== END 2022-03-08 07:15 | disposition home or self-care (01) ==
PROVIDERS: PCP Physician Assistant; Visit Provider Physician Assistant
DX: R93.0 Abnormal findings on diagnostic imaging of skull and head, not elsewhere classified (principal)
CPT/HCPCS: 70553; A9577

== ENCOUNTER 2022-06-29 13:08 | Outpatient (NON) | payer MEDICARE, SELFPAY | END 2022-06-29 13:09 | disposition home or self-care (01) | PROVIDERS: PCP Physician Assistant; Visit Provider Nurse Practitioner | DX: D49.2 Neoplasm of unspecified behavior of bone, soft tissue, and skin (principal) | CPT/HCPCS: 88305 ==